=== PATIENT | female | born 1960 | race Caucasian/White ===

== ENCOUNTER 2021-02-14 17:51 | Inpatient (IN) | payer OTHER ==
[~2021-02-14] VITALS: Ht 165.1 cm; Wt 65.8 kg
[2021-02-14 19:00] LABS: HEMOGLOBIN 14.4 gm/dl (12.3-15.3); RED BLOOD COUNT 5.59 M/UL (4.00-5.10); WHITE BLOOD COUNT 10.8 K/UL (4.5-11.0)
[2021-02-14 19:18] LABS: BUN/CREATININE RATIO 16 (0-10)
[2021-02-15] MEDS ORDERED: VITAMIN D21250 MCG PO (01:09)
[2021-02-15] MEDS ORDERED: METOPROLOL TAR100 MG PO (01:09)
[2021-02-15] MEDS ORDERED: LISINOPRIL40 MG PO (01:10)
[2021-02-15] MEDS ORDERED: KLOR-CON M1010 MEQ PO (01:10)
[2021-02-15] MEDS ORDERED: FUROSEMIDE40 MG PO (01:11)
[2021-02-15] MEDS ORDERED: INDERAL TAB 1010 MG PO (01:11)
[2021-02-15] MEDS ORDERED: FAMOTIDINE40 MG PO (01:11)
[2021-02-15] MEDS ORDERED: GLUCOPHAGE 850850 MG PO (01:11)
[2021-02-15] MEDS ORDERED: AMITRIPTYLINE150 MG PO (01:12)
[2021-02-15] MEDS ORDERED: ACETAMINOPHEN650 M2 PO (01:12)
[2021-02-15 10:06] LABS: HEMOGLOBIN 12.6 gm/dl (12.3-15.3); RED BLOOD COUNT 4.83 M/UL (4.00-5.10); WHITE BLOOD COUNT 8.4 K/UL (4.5-11.0)
[2021-02-16 03:36] LABS: BUN/CREATININE RATIO 24 (0-10)
[2021-02-17 06:15] LABS: BUN/CREATININE RATIO 21 (0-10)
[2021-02-18 07:36] LABS: BUN/CREATININE RATIO 24 (0-10)
[2021-02-19 05:47] LABS: HEMOGLOBIN 11.2 gm/dl (12.3-15.3); RED BLOOD COUNT 4.46 M/UL (4.00-5.10)
[2021-02-19 06:26] LABS: BUN/CREATININE RATIO 21 (0-10)
[2021-02-24 05:41] LABS: HEMOGLOBIN 9.7 gm/dl (12.3-15.3); RED BLOOD COUNT 3.9 M/UL (4.00-5.10); WHITE BLOOD COUNT 6.2 K/UL (4.5-11.0)
[2021-02-24 06:15] LABS: BUN/CREATININE RATIO 31 (0-10)
[2021-02-25] MEDS ORDERED: METOPROLOL SUCC25 MG PO (12:08)
== END 2021-02-25 15:52 | disposition short-term general hospital (02) | DRG 552 ==
LOC: ER1 17:51 → CDU 23:41 → PROG CARE 23:41 → MED SURG 4 02-16 18:02
PROVIDERS: Internal Medicine; Physician Assistant; ADMIT Internal Medicine
DX: M46.46 Discitis, unspecified, lumbar region (principal); M46.26 Osteomyelitis of vertebra, lumbar region; E87.1 Hypo-osmolality and hyponatremia; M46.25 Osteomyelitis of vertebra, thoracolumbar region; Z20.822 Contact with and (suspected) exposure to COVID-19; E13.69 Other specified diabetes mellitus with other specified complication; M54.9 Dorsalgia, unspecified; I25.10 Atherosclerotic heart disease of native coronary artery without angina pectoris; B18.2 Chronic viral hepatitis C; B19.20 Unspecified viral hepatitis C without hepatic coma; I11.0 Hypertensive heart disease with heart failure; I08.1 Rheumatic disorders of both mitral and tricuspid valves; I50.9 Heart failure, unspecified; E86.0 Dehydration; F17.210 Nicotine dependence, cigarettes, uncomplicated; F41.9 Anxiety disorder, unspecified; Z82.49 Family history of ischemic heart disease and other diseases of the circulatory system; Z82.3 Family history of stroke; Z98.890 Other specified postprocedural states; Z88.8 Allergy status to other drugs, medicaments and biological substances; Z91.14 Patient's other noncompliance with medication regimen
CPT/HCPCS: ECHO; 36415; 72129; 72132; 72157; 72158; 80048; 80053; 80202; 80307; 82140; 82550; 82553; 82962; 83036; 83605; 83690; 83735; 84100; 84484; 85025; 85027; 85652; 86140; 87040; 93005; 93306; 96365; 96366; 96368; 96372; 96375; 96376; 97110; 97116-GP-CQ; 97161; 97165; 97530; 97530-GP-CQ; 99285; A9577; C1751; C9113; G0378; J0692; J1650; J2270; J2405; J3370; J3475; J7030; J7050; J7070; Q0177; Q9967; U0002

== ENCOUNTER 2021-09-10 21:28 | Emergency (ER) | payer OTHER ==
[~2021-09-10] VITALS: Ht 162.6 cm; Wt 81.6 kg
[~2021-09-10 21:28] MED LIST: ACETAMINOPHEN650 M2 PO; AMITRIPTYLINE150 MG PO; FAMOTIDINE40 MG PO; FUROSEMIDE40 MG PO; GLUCOPHAGE 850850 MG PO; INDERAL TAB 1010 MG PO; KLOR-CON M1010 MEQ PO; LISINOPRIL40 MG PO; METOPROLOL SUCC25 MG PO; METOPROLOL TAR100 MG PO; VITAMIN D21250 MCG PO
[2021-09-10 22:33] LABS: HEMOGLOBIN 10.6 gm/dl (12.3-15.3)
[2021-09-10 22:55] LABS: BUN/CREATININE RATIO 14 (0-10)
[2021-09-11 19:18] LABS: CANDIDA ALBICANS Not Detected (Negative); CANDIDA KRUSEI Not Detected (Negative); CANDIDA TROPICALIS Not Detected (Negative); ESCHERICHIA COLI Not Detected (Negative); HAEMOPHILUS INFLUENZAE Not Detected (Negative); KLEBSIELLA OXYTOCA Not Detected (Negative); KLEBSIELLA PNEUMONIAE Not Detected (Negative); KPC-CARBAPENEM-RESISTANCE GENE Not Detected (Negative); PROTEUS Not Detected (Negative); PSEUDOMONAS AERUGINOSA Not Detected (Negative); SERRATIA MARCESANS Not Detected (Negative); STAPHYLOCOCCUS AUREUS Not Detected (Negative); STREP AGALACTIAE (GROUP B) Not Detected (Negative); STREP PYOGENES (GROUP A) Not Detected (Negative); STREPTOCOCCUS Not Detected (Negative); vanA/B (VANCOMYCIN RESIST GENE Not Detected (Negative)
[2021-09-11 20:27] LABS: STAPHYLOCOCCUS DETECTED (Negative)
[2021-09-12 04:59] LABS: HEMOGLOBIN 9.3 gm/dl (12.3-15.3); WHITE BLOOD COUNT 8.9 K/UL (4.5-11.0)
[2021-09-12 05:13] LABS: RED BLOOD COUNT 3.61 M/UL (4.00-5.10)
[2021-09-13 04:47] LABS: HEMOGLOBIN 9.1 gm/dl (12.3-15.3); RED BLOOD COUNT 3.51 M/UL (4.00-5.10); WHITE BLOOD COUNT 6.8 K/UL (4.5-11.0)
[2021-09-13] MEDS ORDERED: NALOXONE HCL4 MG (09:41)
[2021-09-13] MEDS ORDERED: ESOMEPRAZOLE MA40 MG PO (09:42)
[2021-09-13] MEDS ORDERED: PROMETHAZINE HC25 M1 PO (09:42)
[2021-09-13] MEDS ORDERED: LISINOPRIL40 MG PO (09:42)
[2021-09-13] MEDS ORDERED: PROAIR HFA8.5 GM INH (09:43)
[2021-09-13] MEDS ORDERED: DIVALPROEX SOD250 MG PO (09:43)
[2021-09-14 05:08] LABS: HEMOGLOBIN 9.7 gm/dl (12.3-15.3); RED BLOOD COUNT 3.76 M/UL (4.00-5.10); WHITE BLOOD COUNT 5.9 K/UL (4.5-11.0)
[2021-09-14 05:58] LABS: BUN/CREATININE RATIO 16 (0-10)
[2021-09-15 04:37] LABS: RED BLOOD COUNT 3.51 M/UL (4.00-5.10); WHITE BLOOD COUNT 6.7 K/UL (4.5-11.0)
[2021-09-15 05:03] LABS: BUN/CREATININE RATIO 14 (0-10)
== END 2021-09-15 18:48 | disposition short-term general hospital (02) ==
LOC: ER1 21:28
PROVIDERS: Emergency Medicine; Family Medicine; Internal Medicine; Physician Assistant Medical
DX: K68.12 Psoas muscle abscess (principal); E11.65 Type 2 diabetes mellitus with hyperglycemia; L02.212 Cutaneous abscess of back [any part, except buttock and flank]; E87.1 Hypo-osmolality and hyponatremia; K80.20 Calculus of gallbladder without cholecystitis without obstruction; M46.24 Osteomyelitis of vertebra, thoracic region; F17.210 Nicotine dependence, cigarettes, uncomplicated; I10 Essential (primary) hypertension; Z86.73 Personal history of transient ischemic attack (TIA), and cerebral infarction without residual deficits; Z20.822 Contact with and (suspected) exposure to COVID-19
CPT/HCPCS: 0240U; 71045; 71260; 72129; 72132; 72157; 72158; 76705; 80048; 80053; 80202; 80307; 81001; 82550; 82553; 82962; 83605; 83690; 83735; 83880; 84484; 85025; 85027; 85652; 86140; 87040; 87077; 87081; 87086; 87150; 87186; 93005; 94760; 96365; 96366; 96375; 96376; 99285; A9577; C9113; J0360; J1170; J1650; J2270; J2405; J2543; J3370; J7070; Q9967